=== PATIENT | female | born 1960 | race Caucasian/White ===

== ENCOUNTER 2017-07-01 10:14 | Emergency (ER) | payer OTHER ==
[~2017-07-01] VITALS: Ht 160 cm; Wt 22.7 kg
[~2017-07-01 10:14] MED LIST: FENT1PAT53 TD; LEVO100T45 PO; LORA-302 PO; OMEP-113 PO; OXYC-284 PO; PRE625 PO; [UNRECOGNIZED DRUG - CODE] PO
--- NOTE | 2017-07-01 10:17 | ED.REPORT ---
HPI-Trauma Minor / Fall Date of Service Jul 01, 2017 ED Provider: Jean Marie Sterling Patient is a 57 year old female who presents to the ED complaining of R sided rib pain s/p falling. She stepped on the joists of a dek that were only tacked together and fell through, hitting her R ribs. Patient did not hit her head. She denies numbness, weakness, headache, vision change, neck pain, back pain, LOC, or any other symptoms. Patient is not on blood thinners. Nursing Notes Stated Complaint: FELL, RIB PAIN Nursing Notes Reviewed: Yes Allergies: Coded Allergies: codeine (Verified Allergy, Severe, Nausea,Vomiting, 12/29/14) PER H&P meperidine (Verified Allergy, Severe, Hallucinations, 12/29/14) PER H&P Scheduled Estrogens Conjugated (Premarin) 0.625 Mg Tablet 0.625 MG PO DAILY Levothyroxine (Levoxyl) 100 Mcg Tablet 100 MCG PO DAILY Omeprazole Magnesium (Omeprazole) 20 Mg Capsule.dr 20 MG PO DAILY Scheduled PRN Lorazepam (Ativan) 0.5 Mg Tablet 0.5 MG PO DAILY PRN PRN For Insomnia Oxycodone HCl/Acetaminophen 5-325 (Percocet 5-325) 1 Each Tablet 1 EACH PO Q6 PRN PRN For Pain Miscellaneous Medications Fentanyl 25 mcg/hr (Duragesic 25 mcg/hr) 1 Each Patch.td72 1 EACH TD Ibuprofen (Advil) 200 Mg Tablet 200 MG PO General Time Seen by MD: 10:17 Chief Complaint Fall Hx Obtained From: Patient Arrived By: Walk-in Onset Occurred: Just prior to arrival Symptom Duration: Since onset Context: Immunizations Unknown Past Medical History Past Medical History Arthritis anxiety GERD chronic pain Past Surgical History Carpal tunnel Reports: Hysterectomy Smoking History Never Smoker Social History Alcohol Use: 1-3 per week Other Social History: Ambulatory Status Independent Review of Systems Review of Systems Note: +R rib pain Musculoskeletal: Denies: Back pain, Neck pain Neurologic: Denies: Change LOC, Headache, Numbness, Vision change, Weakness Complete sys rev & neg: except as marked. Physical Exam Initial Vital Signs Vital Signs (First) Date Time Temp Pulse Resp B/P Pulse Ox O2 Delivery O2 Flow Rate FiO2 07/01/17 10:25 36.7 86 141/95 99 Room Air Initial VS: Reviewed, Vital signs abnormal Head / Eyes: Atraumatic, Normocephalic Skin: Warm, Dry Neurologic: Alert, Oriented, Nonfocal Psychiatric: Mood/affect normal, Behavior normal, Normal thought content General/Constitutional: Awake, Alert Neck: Atraumatic, Supple, Full range of motion Respiratory / Chest: No respiratory distress tender about the right posterolateral chest wall. No crepitus Cardiovascular: Heart rate NL, Regular rhythm, Heart sounds NL Abdomen: Atraumatic, Soft, Non-tender Interpretation & Diagnostics X-Ray Chest Interpretation Chest Xray Interpretation: IMPRESSION: Hyperinflation consistent COPD. Dictated by: Priti Nails M.D. on 07/01/2017 at 11:20 Approved by: Priti Nails M.D. on 07/01/2017 at 11:21 View: Portable, 1 view Interpretation / Wet Read by: Interpret - Radiologist Re-Eval/Medical Decision Med Decision/Clinical Course In summary, the patient is a relatively healthy 57-year-old female, not on any blood thinners, who presents with right-sided chest wall/rib pain after sustaining a fall. Examination reveals no crepitance, palpable rib fractures and she is afebrile and hemodynamically stable. She has tenderness about her right chest wall however there are no objective findings of trauma. Plain films demonstrate pneumothorax or rib fractures. She is in no respiratory distress. She was offered Toradol for pain and provided with ice packs/hot packs. She will take ibuprofen. I have not given any narcotic pain medications as she is already on a fentanyl patch. She will follow closely with her primary care physician. Prior to discharge follow-up and return precautions were reviewed in detail with the patient who verbalized understanding and agreement with the plan. The patient was discharged in stable condition. Re-Evaluation/Progress : Time of Eval: 11:40 Re-Evaluation/Progress Note: Discussed plan for discharge. Patient understands and agrees with plan. All questions addressed at this time. Counseled Regarding: Diagnosis, Need for follow-up, When/why to return to ED Discharge & Departure Impression: Primary Impression: Rib pain Additional Impressions: Fall from ground level Contusion, chest wall Encounter type: initial encounter Laterality: right Qualified Code: S20.211A - Contusion of right front wall of thorax, initial encounter Disposition: Home Discharge Condition All VS Reviewed: Yes Condition: Stable Patient Instructions: Rib Contusion (ED) Additional Instructions: Thank you for seeking care at the emergency room. It is difficult for us to make definitive diagnoses in the ED but we believe that you are experiencing musculoskeletal pain related to your fall. Our primary goal today in the ED was to evaluate you for any life-threatening conditions. Your evaluation and Xrays were reassuring. Take Ibuprofen (600mg up to every 6 hours) with food and water for up to 7 days. Use ice, hot packs, stretching, and rest to help relieve your symptoms. You should follow-up with your primary doctor in the next week. You should return to the ED immediately if you develop shortness of breath, chest pain, lightheadedness, weakness, neck pain, back pain, headache, vomiting , or any other concerning signs or symptoms. Thank you for letting us partake in your care today. Referrals: Ruben Varela MD (PCP) Shawnibe Attestation Portions of this note were transcribed by Sotero José. I, Dr. Sterling personally performed the history, physical exam and medical decision-making; I reviewed and confirmed the accuracy of the information in the transcribed note. Signed: Katharine Berrios, 07/01/17 copies to: Ruben Varela MD, Beck O MD Jul 01, 2017 10:17 SOTERO JOSÉ Jul 01, 2017 10:31
[2017-07-01 10:25] VITALS: BP 141/95; PULSE 86; O2SAT 99
--- NOTE | 2017-07-01 11:23 | DRSVH ---
PROCEDURE: X-RAY CHEST, TWO VIEWS ([id number]) INDICATIONS: right rib pain/fall TECHNIQUE: 2 views of the chest were acquired. COMPARISON: CR, CHEST 2VW, 10/01/2007, 15:16. FINDINGS: Surgical changes and devices: None. Lungs and pleura: Hyperinflation. No pleural effusions or pneumothorax. Lungs are clear. Mediastinum: Mediastinal contours are normal. Heart size is normal. Bones and chest wall: No suspicious bony abnormalities. Soft tissues appear unremarkable. IMPRESSION: Hyperinflation consistent COPD. Dictated by: Priti Nails M.D. on 07/01/2017 at 11:20 Approved by: Priti Nails M.D. on 07/01/2017 at 11:21
[2017-07-01 11:56] VITALS: BP 120/77; PULSE 58; O2SAT 99
== END 2017-07-01 11:57 | disposition home or self-care (01) ==
LOC: SED 10:14
DX: S20.211A Contusion of right front wall of thorax, initial encounter (principal); W18.39XA Other fall on same level, initial encounter; Y93.89 Activity, other specified; Y92.89 Other specified places as the place of occurrence of the external cause; Y99.8 Other external cause status; F41.9 Anxiety disorder, unspecified; K21.9 Gastro-esophageal reflux disease without esophagitis; Z88.5 Allergy status to narcotic agent; Z88.8 Allergy status to other drugs, medicaments and biological substances